=== PATIENT | male | born 1985 | race Two or more races ===

== ENCOUNTER 2024-09-23 17:40 | Emergency (ER) | payer OTHER, SELFPAY ==
[2024-09-23 17:45] VITALS: BMI 28.8
--- NOTE | 2024-09-23 18:00 | XR_ITS ---
Examination: CT maxillofacial, without intravenous contrast. 2-D sagittal reconstructions. 3-D reconstructions. Date and time of exam:September 23, 2024, 1916 hours INDICATIONS: Patient fell today with image of the face, facial pain CTDI: vol (mGy):18.8 DLP: (mGycm):395 Technique: Multiple axial images of maxillofacial region, 3.0 mm slice thickness. 2-D sagittal and coronal reconstructions. 3-D reconstructions. Low dose protocols were performed. One or more of the following dose reduction techniques were used; automated exposure control, adjustment of the mA and/or KV according to patient size, use of iterative reconstruction technique. Findings: Frontal intact Orbital rims intact Displaced comminuted right nasal bone fractures. No depression zygomatic arches Pterygoid plates maxilla is intact mandible is intact Soft tissue swelling anterior to the right nasal bone and anterior to the right maxillary antrum IMPRESSION: Acute displaced right nasal bone fractures
--- NOTE | 2024-09-23 18:21 | PD.EDADULT ---
ED General RME/HPI General Chief complaint: Medical Clearance Stated complaint: MEDICAL CLEARANCE Time Seen by Provider: 09/23/24 17:59 Arrival date/time: 09/23/24 17:40 CC: Right sided facial pain laceration to the forehead and the right cheek HPI fall approximately 2 hours ago in the gravel, patient is here for medical clearance with a guard and in handcuffs. Patient denies LOC although see double vision or loss of consciousness difficulty breathing or speaking. Related Data Allergies Allergy/AdvReac Type Severity Reaction Status Date / Time No Known Allergies Allergy Verified 09/23/24 17:49 Review of Systems Review of Systems Narrative Review of Systems: GEN: No fever, no chills, no weight loss EYES: No discharge, no visual changes, no pain HEENT: No ear pain, no congestion, no sore throat PULM: No shortness of breath, no cough, no congestion CV: No chest pain, no dyspnea on exertion, no palpitations GI: No nausea, no vomiting, no diarrhea, no pain, no constipation : No frequency, no urgency, no dysuria MUSC/SKEL: No joint pain, no back pain SKIN: + Laceration, no rash PSYCH: No hallucinations, no depression HEME/LYMPH: No easy bleeding or bruising tendencies NEURO: No weakness, no headache ED Exam Narrative Physical exam: [General: In mild discomfort but not in any acute distress Head normocephalic no step-offs hematoma induration ulceration or depressions HEENT: Face: Right sided facial edema with ecchymosis to the lower lid of the eye, 2 cm full-thickness laceration to the right cheek, forehead nontender with a 2 cm laceration. Mild ecchymosis below the left eye that extends down to the bridge of the nose. Eyes pupils are PERRLA EOMs are intact mouth pink moist membranes uvula is midline swallow symmetrical no step-off indentation. Nose: No epistaxis or rhinorrhea, ears, no otorrhea no raccoon's eyes or Russell sign. Within acceptable limits Neck is supple nontender no tenderness to palpation of the spinous processes, full range of motion flexion extension and rotation. Chest equal chest rise nontender to palpation Respiratory: Clear to auscultation no wheezes crackles or rubs CV: Rate rhythm is regular no murmurs rubs or clicks Abdomen is distended secondary to body habitus soft nontender no masses positive bowel sounds all 4 quadrants Back: No CVA tenderness no spinous process tenderness from cervical spine thoracic and lumbar spine Skin: 2 cm full-thickness laceration to the right cheek, 2 cm full-thickness laceration to the left center forehead. Intact no petechiae rash induration ulceration or crepitus Extremities: Moving all extremity against resistance cap refill less than 2 seconds neurosensory intact Neuro: Awake alert oriented x3 Glascow coma 15 no focal deficits] Course Quality Measures none Orders Category Date Time Status Set Up Suture Tray STAT Care 09/23/24 18:[address] facial bones wo con Stat Exams 09/23/24 18:00 Taken Lidocaine 1% 20 ml [Xylocaine 1% 20 ML] Med 09/23/24 18:00 Discontinued 20 ml INFL X1 ONE Tetanus, Diphtheria Toxoids/Pf [Tenivac-Adult] Med 09/23/24 18:00 Discontinued 0.5 ml SCI .ONCE ONE PROCEDURES: Procedure Comment Laceration repair 2 lacerations anesthesia 1% lidocaine without epinephrine 1-1/2 mL injected into the forehead laceration 1-1/2 mL injected into the right cheek laceration both lacerations a 2 cm in length. Laceration #1 forehead laceration site was cleaned and probed no foreign body was found. Site was approximated with 3 interrupted sutures of 5-0 Ethilon without complication patient tolerated the procedure well. Laceration #2 in the cheek 2 cm full-thickness semicircular laceration site was cleaned and probed no foreign body was found site was approximated with 3 interrupted sutures of 5-0 Ethilon without any complications. Patient tolerated the procedure well. Discharge Plan Plan Patient Disposition: Senior Care/Court/Law Prescriptions/Referrals Referrals: Other,. [Primary Care Provider] - In 1 week Problem List Clinical Impression: Contusion of face, Forehead laceration, Cheek laceration Patient/Caregiver Discharge Instructions Other Activity Instructions:: Keep the site clean and dry, if you are back on line go ahead and keep it covered with antibiotic ointment and a dressing. If there are any signs of infection such as redness or pus I would recommend starting on Keflex 500 mg twice daily for 7 days. Education Materials: ED Facial Contusion, ED Laceration: All Closures Print Language: [place]i Stand Alone Forms: [employer] Award Info., Work/School Release PA/PRIVATE CHEF Supervising Physician MYLES Supervising Physician: Robin Reynoso ENP MDM Clinical Information Provided by patient and law enforcement Medical Records Reviewed [facility] Meds/Rx Considered, not Ordered None Labs/Rad/Tests considered, not Ordered None EKG EKG not done Medication Administration(s) Medication Administration History Discontinued Medications Lidocaine HCl (Lidocaine Hcl 1% 20 Ml Vial) 20 ml INFL X1 ONE Stop: 09/23/24 18:01 Last Admin: 09/23/24 18:25 Dose: 20 ml Documented By: NABOR Tetanus/Diphtheria Toxoids (Tetanus,Diphtheria Toxoids/Pf (Adult) 0.5 Ml Syringe) 0.5 ml SCi .ONCE ONE Stop: 09/23/24 18:01 Last Admin: 09/23/24 18:25 Dose: 0.5 ml Documented By: NABOR
[2024-09-23] MEDS: LIDOCAINE HCL 1% 20 ML VIAL INFL (18:25)
[2024-09-23] MEDS: TETANUS,DIPHTHERIA TOXOIDS/PF (ADULT) 0.5 ML SYRINGE SCi (18:25)
[2024-09-23 20:14] VITALS: BP 124/82; PULSE 78; RESP 16; TEMP 36.6; O2SAT 99
== END 2024-09-23 20:18 ==
PROVIDERS: Emergency Provider Emergency Medicine
DX: Z02.89 Encounter for other administrative examinations (principal); S01.81XA Laceration without foreign body of other part of head, initial encounter; W19.XXXA Unspecified fall, initial encounter; Z23 Encounter for immunization
CPT/HCPCS: 12013; 70486; 90714; 99284; J3490